=== PATIENT | female | born 1960 | race Caucasian/White ===

== ENCOUNTER 2022-10-25 10:55 | Inpatient (IN) ==
[2022-10-25] MEDS ORDERED: SODIUM CHLORIDE 0.9% 1,000 ML IV STA (11:39)
[2022-10-25 12:08] LABS: Basophils % 0.1 % (0.0-0.8); Hematocrit 46.7 VOL% (35.7-47.0); Hemoglobin 15.1 GM/DL (12.0-16.0); Immature Granulocytes % 0.8 %; Immature Granulocytes Absolute 0.12 #; Lymphocytes # 1.1 10*3/uL (1.4-4.0); Lymphocytes % 6.9 % (21.3-54.2); Mean Corpuscular HGB Conc 32.3 GM/DL (32-36); Mean Corpuscular Volume 91.4 FL (87-102); Mean Platelet Volume 12.6 FL (9.6-12.0); Monocytes # 0.5 10*3/uL (0.11-0.8); Monocytes % 3.3 % (1.7-12.7); Neutrophils % 88.9 % (38.7-73.9); Platelet Count 121 T/CUMM (130-400); Red Blood Count 5.11 MC/CUMM (3.8-5.5); Red Cell Distribution Width 13.9 % (9.3-17.3); White Blood Count 15.3 T/CUMM (4-12)
[2022-10-25 12:19] LABS: Mucus,Urine Occasional /LPF (Occasional); RBC,Urine 4 /HPF (0-4); Squamous Epithelial Cell,Urine Occasional /HPF (0-10); Urine Appearance Clear (Clear); Urine Color Yellow (Yellow); Urine pH 5.5 (4.5-8.0)
[2022-10-25 12:20] LABS: Bilirubin,Urine Negative (Negative); Blood, Urine Moderate mg/dL (Negative); Glucose,Urine (UA) >=1000 mg/dL (Negative); Ketones,Urine Negative (Negative); Nitrite,Urine Negative (Negative); Protein,Urine Negative (Negative); Urine Urobilinogen 0.2 eU/dL (<2.0)
[2022-10-25 12:28] LABS: Albumin 3.2 G/DL (3.4-5.0); Bilirubin,Total 0.7 MG/DL (0.20-1.00); Calcium 9.7 MG/DL (8.5-10.1); Osmolality,Calculated 299.8 MOS/KG (273-304); Potassium 4.7 MMOL/L (3.5-5.1); Total Protein 7.2 G/DL (6.4-8.2)
[2022-10-25 12:29] LABS: INR 0.9; PT Patient Result 10.5 SECS (10.1-12.1)
[2022-10-25] MEDS ORDERED: INSULIN REGULAR 100 UNIT/ML IV STA (12:35)
[2022-10-25] MEDS ORDERED: SODIUM CHLORIDE 0.9% 500 ML IV STA (12:35)
[2022-10-25] MEDS ORDERED: LORazepam 2 MG/1 ML VIAL IV STA (14:48)
[2022-10-25] MEDS ORDERED: LORazepam 2 MG/1 ML VIAL ONE (14:50)
[2022-10-25] MEDS ORDERED: ASPIRIN 325 MG TABLET PO STA (16:20)
[2022-10-25] MEDS ORDERED: hydrALAZINE 20 MG/1 ML VIAL IV PRN (17:36)
[2022-10-25] MEDS: ENOXAPARIN 40 MG/0.4 ML SYRINGE SUBCUT SCH (17:42)
[2022-10-25] MEDS: SODIUM CHLORIDE 0.9% 1,000 ML IV SCH (17:42)
[2022-10-25 18:14] LABS: Barbiturates Screen,Urine Negative (Negative); Benzodiazepines Screen,Urine Negative (Negative); Cannabinoid Screen,Urine Negative (Negative); Opiate Screen,Urine Negative (Negative); Phencyclidine Screen,Urine Negative (Negative)
[2022-10-25] MEDS: INSULIN REGULAR 100 UNIT/ML SUBCUT SCH (21:47)
[2022-10-25] MEDS: EZETIMIBE 10 MG TABLET PO SCH (21:47)
[2022-10-25] MEDS: CEFUROXIME 500 MG TABLET PO SCH (21:47)
[2022-10-25] MEDS: PANTOPRAZOLE 40 MG TABLET PO SCH (23:09)
[2022-10-25] MEDS: INSULIN GLARGINE 100 UNIT/ML SUBCUT SCH (23:09)
[2022-10-25] MEDS: predniSONE 20 MG TABLET PO SCH (23:09)
[2022-10-26] MEDS: SODIUM CHLORIDE 0.9% 1,000 ML IV SCH ×2 (05:00→17:43)
[2022-10-26 05:34] LABS: Basophils % 0.1 % (0.0-0.8); Eosinophils % 0.1 % (0.00-10.9); Hematocrit 39.9 VOL% (35.7-47.0); Immature Granulocytes % 0.4 %; Immature Granulocytes Absolute 0.04 #; Lymphocytes % 10.3 % (21.3-54.2); Mean Corpuscular HGB Conc 32.6 GM/DL (32-36); Mean Corpuscular Volume 92.4 FL (87-102); Mean Platelet Volume 12.2 FL (9.6-12.0); Monocytes # 0.3 10*3/uL (0.11-0.8); Monocytes % 3.3 % (1.7-12.7); Neutrophils % 85.8 % (38.7-73.9); Platelet Count 88 T/CUMM (130-400); Red Blood Count 4.32 MC/CUMM (3.8-5.5); Red Cell Distribution Width 13.8 % (9.3-17.3); White Blood Count 9.6 T/CUMM (4-12)
[2022-10-26 05:59] LABS: Calcium 8.5 MG/DL (8.5-10.1); Osmolality,Calculated 288.5 MOS/KG (273-304); Potassium 4.3 MMOL/L (3.5-5.1); Risk Ratio 3.07; VLDL Cholesterol 30.6 MG/DL
[2022-10-26 06:00] LABS: Platelet Estimate Decreased
[2022-10-26] MEDS ORDERED: LOSARTAN 25 MG TABLET PO SCH (09:00)
[2022-10-26] MEDS ORDERED: GLUCAGON 1 MG VIAL IM PRN (10:14)
[2022-10-26] MEDS ORDERED: DEXTROSE 10% 250 ML BAG IV PRN (10:14)
[2022-10-26] MEDS: ASPIRIN EC 81 MG TABLET PO SCH (10:56)
[2022-10-26] MEDS: METOPROLOL SUCCINATE XL 50 MG TABLET PO SCH (10:56)
[2022-10-26] MEDS: CEFUROXIME 500 MG TABLET PO SCH ×2 (10:57→21:30)
[2022-10-26] MEDS: predniSONE 20 MG TABLET PO SCH (10:57)
[2022-10-26] MEDS: CLOPIDOGREL 75 MG TABLET PO SCH (10:57)
[2022-10-26] MEDS: PANTOPRAZOLE 40 MG TABLET PO SCH ×2 (10:57→21:30)
[2022-10-26] MEDS: DAPAGLIFLOZIN 10 MG TABLET PO SCH (10:57)
[2022-10-26] MEDS: ESCITALOPRAM 10 MG TABLET PO SCH (10:57)
[2022-10-26] MEDS: OMEGA 3 ACID ETHYL ESTERS 1 GM CAPSULE PO SCH (10:57)
[2022-10-26] MEDS: INSULIN REGULAR 100 UNIT/ML SUBCUT SCH ×4 (11:44→21:29)
[2022-10-26] MEDS ORDERED: ALPRAZolam 0.5 MG TABLET PO PRN (14:05)
[2022-10-26] MEDS ORDERED: sitaGLIPtin 100 MG TABLET PO SCH (21:00)
[2022-10-26] MEDS ORDERED: ATORVASTATIN 40 MG TABLET PO SCH (21:00)
[2022-10-26] MEDS: ENOXAPARIN 40 MG/0.4 ML SYRINGE SUBCUT SCH (21:29)
[2022-10-26] MEDS: MENTHOL/ZINC OXIDE OINT 71 GM JAR TOP SCH (21:29)
[2022-10-26] MEDS: EZETIMIBE 10 MG TABLET PO SCH (21:29)
[2022-10-26] MEDS: INSULIN GLARGINE 100 UNIT/ML SUBCUT SCH (21:30)
[2022-10-27 05:50] LABS: Basophils % 0.1 % (0.0-0.8); Eosinophils # 0.1 10*3/uL (0.0-0.87); Eosinophils % 0.5 % (0.00-10.9); Hematocrit 39.7 VOL% (35.7-47.0); Hemoglobin 12.7 GM/DL (12.0-16.0); Immature Granulocytes % 0.6 %; Immature Granulocytes Absolute 0.07 #; Lymphocytes # 3.3 10*3/uL (1.4-4.0); Lymphocytes % 28.2 % (21.3-54.2); Mean Corpuscular Volume 92.3 FL (87-102); Mean Platelet Volume 12.4 FL (9.6-12.0); Monocytes # 0.7 10*3/uL (0.11-0.8); Monocytes % 6.4 % (1.7-12.7); Neutrophils % 64.2 % (38.7-73.9); Platelet Count 72 T/CUMM (130-400); Red Cell Distribution Width 14.1 % (9.3-17.3); White Blood Count 11.6 T/CUMM (4-12)
[2022-10-27 06:00] LABS: Calcium 9.1 MG/DL (8.5-10.1); Osmolality,Calculated 290.8 MOS/KG (273-304); Potassium 5.3 MMOL/L (3.5-5.1)
[2022-10-27 06:10] LABS: Platelet Estimate Decreased
[2022-10-27] MEDS: INSULIN REGULAR 100 UNIT/ML SUBCUT SCH ×2 (07:59→11:49)
[2022-10-27] MEDS ORDERED: SODIUM POLYSTYRENE SULFATE 15 GM/60 ML BOTTLE PO STA (08:05)
[2022-10-27 08:15] VITALS: BP 151/67
[2022-10-27] MEDS: CEFUROXIME 500 MG TABLET PO SCH (08:17)
[2022-10-27] MEDS: DAPAGLIFLOZIN 10 MG TABLET PO SCH (08:17)
[2022-10-27] MEDS: OMEGA 3 ACID ETHYL ESTERS 1 GM CAPSULE PO SCH (08:17)
[2022-10-27] MEDS: ASPIRIN EC 81 MG TABLET PO SCH (08:17)
[2022-10-27] MEDS: CLOPIDOGREL 75 MG TABLET PO SCH (08:17)
[2022-10-27] MEDS: PANTOPRAZOLE 40 MG TABLET PO SCH (08:18)
[2022-10-27] MEDS: ESCITALOPRAM 10 MG TABLET PO SCH (08:18)
[2022-10-27] MEDS: METOPROLOL SUCCINATE XL 50 MG TABLET PO SCH (08:18)
[2022-10-27] MEDS ORDERED: predniSONE 20 MG TABLET PO SCH (09:00)
[2022-10-27] MEDS: MENTHOL/ZINC OXIDE OINT 71 GM JAR TOP SCH (09:45)
== END 2022-10-27 12:34 | disposition home health service (06) | DRG 637 ==
LOC: N.ED 10:55 → N.EDINP 17:04 → N.5E 18:19
PROVIDERS: ADMIT Family Medicine; ATTEND Family Medicine